=== PATIENT | female | born 1995 | race Caucasian/White ===

== ENCOUNTER 2017-02-27 15:05 | Emergency (ER) | payer OTHER ==
--- NOTE | 2017-02-27 15:11 | PDOC ---
History of Present Illness - General History Source: Patient Exam Limitations: No Limitations - History of Present Illness Initial Comments: 02/27/17 16:03 Patient is a 21 year old female with a significant past medical history of recurrent Tonsillitis who presents to the ED with complaints of sore throat that began yesterday. Patient reports sore throat began yesterday at 9pm suddenly while at school. As per mother patient experiencing these symptoms at least once per month. Patient reports not eating or drinking since 9 pm yesterday secondary to Sore throat. Mother states patient has not gotten tonsils removed because she has yet to get Tonsillitis 6 times in one year. Denies receiving flu shots. Denies contact with sick individuals, out of state travel. Denies fever, chills. Denies nausea, vomiting. Denies any other symptoms. Allergies: None Social history: Lives in college. No smoking. No alcohol. No illicit drugs. Surgical history: None PMD: None <Matias Loredo - Last Filed: 02/27/17 16:03> <Carola Ramirez - Last Filed: 02/27/17 16:34> - General Chief Complaint: Sore Throat Stated Complaint: SORE THROAT Time Seen by Provider: 02/27/17 15:10 Past History <Matias Loredo - Last Filed: 02/27/17 16:03> <Carola Ramirez - Last Filed: 02/27/17 16:34> - Past Medical History Allergies/Adverse Reactions: Allergies Allergy/AdvReac Type Severity Reaction Status Date / Time No Known Allergies Allergy Verified 02/27/17 15:09 Home Medications: Ambulatory Orders Amox-Tr/K Cl [Augmentin - 875Mg Tablet] 1 tab PO BID #20 tablet 02/27/17 Review of Systems - Review of Systems Able to Perform ROS?: Yes Comments:: 02/27/17 16:04 GENERAL/CONSTITUTIONAL: No fever or chills. No weakness. HEAD, EYES, EARS, NOSE AND THROAT: +Sore Throat. No change in vision. No ear pain or discharge. GASTROINTESTINAL: No nausea, vomiting, diarrhea or constipation. GENITOURINARY: No dysuria, frequency, or change in urination. CARDIOVASCULAR: No chest pain or shortness of breath. RESPIRATORY: No cough, wheezing, or hemoptysis. MUSCULOSKELETAL: No joint or muscle swelling or pain. No neck or back pain. SKIN: No rash NEUROLOGIC: No headache, vertigo, loss of consciousness, or change in strength/ sensation. ENDOCRINE: No increased thirst. No abnormal weight change. HEMATOLOGIC/LYMPHATIC: No anemia, easy bleeding, or history of blood clots. ALLERGIC/IMMUNOLOGIC: No hives or skin allergy. All Other Systems: Reviewed and Negative <Matias Loredo - Last Filed: 02/27/17 16:03> *Physical Exam - Vital Signs Last Vital Signs Temp Pulse Resp BP Pulse Ox 100.1 F H 110 H 16 127/70 97 02/27/17 15:09 02/27/17 15:09 02/27/17 15:09 02/27/17 15:09 02/27/17 15:09 - Physical Exam Comments: 02/27/17 16:04 GENERAL: +Face flushed. Awake, alert, and fully oriented, in no acute distress HEAD: No signs of trauma EYES: PERRLA, EOMI, sclera anicteric, conjunctiva clear ENT: +White exudates. +Tonsils touching uvula. +Tonsil swelling bilaterally. + Tonsillar erythema. +Hot potato voice. +Tolerating secretions. No signs of peritonsillar abscess. No posterior lymphadenopathy. No Submandibular lymphadenopathy. Auricles normal inspection, hearing grossly normal, nares patent. Moist mucosa NECK: Normal ROM, supple, no lymphadenopathy, JVD, or masses LUNGS: Breath sounds equal, clear to auscultation bilaterally. No wheezes, and no crackles HEART: +Tachycardic. Regular rhythm, normal S1 and S2, no murmurs, rubs or gallops ABDOMEN: Soft, nontender, normoactive bowel sounds. No guarding, no rebound. No masses EXTREMITIES: Normal range of motion, no edema. No clubbing or cyanosis. No cords, erythema, or tenderness NEUROLOGICAL: Cranial nerves II through XII grossly intact. Normal speech, normal gait SKIN: Warm, Dry, normal turgor, no rashes or lesions noted. <Matias Loredo - Last Filed: 02/27/17 16:03> ED Treatment Course - ADDITIONAL ORDERS Additional order review: Laboratory Results 02/27/17 15:35 Urine HCG, Qual Negative - Medications Given in the ED: ED Medications Discontinued Medications Generic Name Dose Route Start Last Admin Trade Name Romana PRN Reason Stop Dose Admin Acetaminophen 975 mg 02/27/17 15:21 02/27/17 15:41 Tylenol - PO 02/27/17 15:22 975 mg ONCE ONE Administration Dexamethasone Sodium Phosphate 10 mg 02/27/17 15:19 02/27/17 15:59 Decadron Injection - IM 02/27/17 15:20 10 mg ONCE ONE Administration <Matias Loredo - Last Filed: 02/27/17 16:03> Medical Decision Making - Medical Decision Making 02/27/17 15:23 a/p: 21yo female with sore throat -recurrent tonsillitis -has seen ent for tonsillectomy but insurance wont approve unless patient has 6 infections in a year -b/l tonsillar exudates -will obtain strep swab, monospot, throat culture -decadron, tylenol 02/27/17 16:30 pt tolerated PO. [place] pending. Rapid strep negative, culture pending. Will treat for pharyngitis with abx. will call patient with mono results. Pt is stable for d/c to home. <Carola Ramirez - Last Filed: 02/27/17 16:34> *DC/Admit/Observation/Transfer - Attestations Scribe Attestion: 02/27/17 16:05 Documentation prepared by Matias Loredo, acting as medical case worker for Carola Ramirez DO, MD/. <Matias Loredo - Last Filed: 02/27/17 16:03> - Discharge Dispostion Admit: No - Attestations Physician Attestion: 02/27/17 16:33 I, Dr. Carola Ramirez DO, attest that this document has been prepared under my direction and personally reviewed by me in its entirety. I further attest, that it accurately reflects all work, treatment, procedures and medical decision -making performed by me. <Carola Ramirez - Last Filed: 02/27/17 16:34> Diagnosis at time of Disposition: Pharyngitis - Discharge Dispostion Disposition: HOME Condition at time of disposition: Stable - Prescriptions Prescriptions: Amox-Tr/K Cl [Augmentin - 875Mg Tablet] 1 tab PO BID #20 tablet - Referrals Referrals: Martín Mac MD [Staff Physician] - Jey Ramirez MD [Staff Physician] - Robin Hoffman MD [Staff Physician] - - Patient Instructions Printed Discharge Instructions: DI for Pharyngitis/Tonsillopharyngitis -- Adult Additional Instructions: Please take all meds as prescribed. Please return to the ED with any further concerns. Please follow up with the ENT physicians. - Post Discharge Activity Forms/Work/School Notes: Back to School
[2017-02-27] MEDS ORDERED: DEXAMETHASONE SOD PHOSPHATE 10 MG/1 ML VIAL IM ONE (15:19)
[2017-02-27] MEDS ORDERED: ACETAMINOPHEN 325 MG TABLET (FP) PO ONE (15:21)
[2017-02-27 15:35] VITALS: BP 127/70; PULSE 110; TEMP 100.1; BMI 30.5
[2017-02-27] MEDS ORDERED: ACETAMINOPHEN 325 MG TABLET (FP) ONE (15:37)
[2017-02-27] MEDS ORDERED: DEXAMETHASONE SOD PHOSPHATE 10 MG/1 ML VIAL ONE (15:54)
[2017-02-27] MEDS ORDERED: AMOX TR/POT CLAV 875MG/125MG TABLETS (FP) PO ONE (16:26)
[2017-02-27] MEDS ORDERED: AMOX TR/POT CLAV 875MG/125MG TABLETS (FP) ONE (16:27)
== END 2017-02-27 16:40 | disposition home or self-care (01) ==
LOC: FER 15:05
PROC: 3E023GC Introduction of Other Therapeutic Substance into Muscle, Percutaneous Approach (ICD-10-PCS; principal; 2017-02-27)
DX: J02.9 Acute pharyngitis, unspecified (principal)
CPT/HCPCS: 36415; 84703; 86308; 87070; 87077; 87430; 96372; 99281-25